=== PATIENT | male | born 1995 | race Caucasian/White ===

== ENCOUNTER → 2020-01-18 11:00 | Outpatient (BNVA) | payer BC, SELFPAY | PROVIDERS: Family Provider Family Medicine; PCP Family Medicine; Visit Provider Internal Medicine | DX: K90.9 Intestinal malabsorption, unspecified (principal); K29.70 Gastritis, unspecified, without bleeding; K29.00 Acute gastritis without bleeding | CPT/HCPCS: 83540; 83550; 85025 ==

== ENCOUNTER 2020-01-29 11:11 | Outpatient (CLI) | payer BC, SELFPAY | END 2020-01-29 11:12 | disposition home or self-care (01) | LOC: GILAB 11:12 | PROVIDERS: Family Provider Family Medicine; PCP Family Medicine; Visit Provider Internal Medicine | DX: Z01.89 Encounter for other specified special examinations (principal) ==

== ENCOUNTER 2020-02-05 08:55 | Outpatient (RCR) | payer BC, SELFPAY ==
[2020-01-29 10:35] VITALS: BMI 31.3
[2020-02-05 09:05] VITALS: BP 124/78; PULSE 88; RESP 18; TEMP 36.4; O2SAT 98
== END 2020-02-13 23:59 | disposition home or self-care (01) ==
LOC: GILAB 08:55
PROVIDERS: Family Provider Family Medicine; PCP Family Medicine; Visit Provider Internal Medicine
DX: K90.9 Intestinal malabsorption, unspecified (principal)
CPT/HCPCS: 96365; J1439

== ENCOUNTER 2020-03-03 10:18 | Emergency (ER) | payer BC, SELFPAY ==
[2020-03-03 10:23] VITALS: BMI 31.0
[2020-03-03 10:26] VITALS: BP 131/76; PULSE 107; RESP 18; TEMP 37.2; O2SAT 98
--- NOTE | 2020-03-03 10:30 | W.ED.EXTPRO ---
HPI - Extremity Problem General: Chief complaint: Extremity Problem,Nontraumatic Stated complaint: LEFT LEG CRAMP Time Seen by Provider: 03/03/20 10:24 PFSH ED PFSH: Social History Smoking and tobacco status: never smoked Alcohol intake: never Household members: family Housing: House History of recent travel: No Current gender identity: Male Course Vital Signs: Vital signs: Vital Signs Temperature 98.9 F 03/03/20 10:26 Pulse Rate 89 03/03/20 12:15 Respiratory Rate 16 03/03/20 12:15 Blood Pressure 133/66 03/03/20 12:15 Pulse Oximetry 99 03/03/20 12:15 MDM - Extremity (Nontraumatic) Lab Data: Labs: Lab Results 03/03/20 03/03/20 Range/Units 10:53 11:20 WBC 11.8 H (4.0-10.0) 10^3/ uL RBC 6.01 H (4.1-5.3) 10^6/u L Hgb 14.6 (11.7-16.6) g/dL Hct 48.7 (42.0-52.0) % MCV 81.0 (80-94) fL MCH 24.3 L (28.0-34.0) pg MCHC 30.0 (30.0-36.0) g/dL RDW 14.0 (12.1-15.1) % Plt Count 250 (130-400) 10^3/c mm MPV 11.0 H (7.4-10.4) fL Neut % (Auto) 82.0 % Lymph % (Auto) 7.0 % Ramsey % (Auto) 10.0 % Eos % (Auto) 0.3 % Baso % (Auto) 0.3 % Neut # (Auto) 9.6 H (1.8-7.7) 10^3/u L Lymph # (Auto) 0.8 (0.8-4.8) 10^3/u L Ramsey # (Auto) 1.2 H (0.2-0.9) 10^3/u L Eos # (Auto) 0.0 (0.0-0.8) 10^3/u L Baso # (Auto) 0.0 (0.0-0.1) 10^3/u L Nucleated RBC % (a uto) 0 % Nucleated RBCs # 0.0 /100WBC Poikilocytosis 1+ H Anisocytosis 1+ H Ovalocytes 1+ H Iron 22 L (59-158) ug/dL TIBC 313 mcg/dl % Saturation 7.0 L (20-50) % Unsat Iron Binding 291 (112-347) ug/dL Ferritin 54 (30-400) ng/mL Discharge Plan Discharge Patient Disposition: Home, Self-Care Clinical Impression: Malabsorption of iron, Muscle cramp Anemia Qualifiers: Anemia type: iron deficiency Iron deficiency anemia type: other iron deficiency Qualified Code(s): D50.8 - Other iron deficiency anemias Condition: Stable Prescriptions: New cyclobenzaprine 5 mg tablet 5 mg PO Q8H PRN (Reason: muscle spasm) Qty: 14 RF: 0 No Action mesalamine [Lialda] 1.2 gram tablet,delayed release (DR/EC) 2.4 gm PO DAILY RF: 0 ondansetron HCl [Zofran] 4 mg tablet 4 mg PO Q6H PRN (Reason: nausea and vomiting) Qty: 14 RF: 0 magnesium 250 mg Tablet 250 mg PO DAILY PRN (Reason: MUSCLE CRAMPS) RF: 0 Excedrin Extra Strength 250-250-65 mg Tablet 1 tab PO Q6H PRN (Reason: Pain) RF: 0 Slow Fe 142 mg (45 mg iron) Tablet Extended Release 142 mg PO DAILY RF: 0 Discharge Orders: Discharge Order (Routine); Ordered 03/03/20 Ordered By: Conor Connell Referrals: Mert Vogel MD [Primary Care Provider] - Jenni Barajas DO [Family Provider] - Discharge Diet: Usual diet Discharge Activity: Increase activity as tolerated Patient Instructions: Leg Cramps (ED), Muscle Cramp (ED) Activity Restrictions/Additional Instructions: Follow-up with medical provider as directed. Take medications as prescribed. Return to the ER or your medical provider if condition worsens. Please read and understand discharge instructions. If any questions ask please. Discharge Date/Time: 03/03/20 12:04 Coding Level of Care Code ED Automation Technologist for [facility]
[2020-03-03] MEDS: cyclobenzaprine 10 mg Tablet PO (10:37)
[2020-03-03 11:17] LABS: Ferritin 54 ng/mL (30-400); Iron 22 ug/dL (59-158); Total Iron Binding Capacity 313 mcg/dl; Unsaturated Iron Binding 291 ug/dL (112-347)
[2020-03-03 11:29] LABS: Basophils % 0.3 %; Eosinophils % 0.3 %; Hematocrit 48.7 % (42.0-52.0); Hemoglobin 14.6 g/dL (11.7-16.6); Lymphocytes # 0.8 10^3/uL (0.8-4.8); Mean Corpuscular Hemoglobin 24.3 pg (28.0-34.0); Monocytes # 1.2 10^3/uL (0.2-0.9); Neutrophils # 9.6 10^3/uL (1.8-7.7); Nucleated Red Blood Cells % 0 %; Platelet Count 250 10^3/cmm (130-400); Red Blood Count 6.01 10^6/uL (4.1-5.3); White Blood Count 11.8 10^3/uL (4.0-10.0)
[2020-03-03 11:56] LABS: Add RBC Morph Yes; Slide Review Slide Review Perform
[2020-03-03 11:57] LABS: Anisocytosis 1+; Ovalocytes 1+; Poikilocytosis 1+
[2020-03-03 11:58] LABS: RBC Morph Comp Yes
[2020-03-03 12:15] VITALS: BP 133/66; PULSE 89; RESP 16; O2SAT 99
== END 2020-03-03 12:04 | disposition home or self-care (01) ==
PROVIDERS: Emergency Provider Nurse Practitioner Family; Family Provider Family Medicine; PCP Internal Medicine
DX: D50.8 Other iron deficiency anemias (principal); K90.9 Intestinal malabsorption, unspecified; R25.2 Cramp and spasm
CPT/HCPCS: 12345; 36415; 82728; 83540; 83550; 85025; 99281; 99283

== ENCOUNTER → 2020-05-01 11:34 | Outpatient (BNVA) | payer BC, SELFPAY | PROVIDERS: Family Provider Family Medicine; PCP Internal Medicine; Visit Provider Family Medicine | DX: M25.551 Pain in right hip (principal); K51.311 Ulcerative (chronic) rectosigmoiditis with rectal bleeding | CPT/HCPCS: 73502 ==

== ENCOUNTER → 2020-06-13 14:46 | Outpatient (BNVA) | payer BC, SELFPAY | PROVIDERS: Family Provider Family Medicine; PCP Internal Medicine; Visit Provider Internal Medicine | DX: K90.9 Intestinal malabsorption, unspecified (principal) | CPT/HCPCS: 83550; 85025 ==

== ENCOUNTER → 2020-07-29 12:00 | Outpatient (BNVA) | payer BC, SELFPAY | PROVIDERS: Family Provider Family Medicine; PCP Internal Medicine; Visit Provider Nurse Practitioner Family | DX: Z11.59 Encounter for screening for other viral diseases | CPT/HCPCS: 87635 ==

== ENCOUNTER → 2022-08-27 11:24 | Outpatient (BNVA) | payer BC, OTHER, SELFPAY | PROVIDERS: Family Provider Family Medicine; Visit Provider Emergency Medicine | DX: K51.311 Ulcerative (chronic) rectosigmoiditis with rectal bleeding (principal); D50.8 Other iron deficiency anemias; R11.2 Nausea with vomiting, unspecified | CPT/HCPCS: 85025 ==

== ENCOUNTER → 2024-05-22 09:02 | Outpatient (BNVA) | payer OTHER, SELFPAY | PROVIDERS: Family Provider Family Medicine; PCP Nurse Practitioner; Referring Provider Nurse Practitioner; Visit Provider Nurse Practitioner | DX: R42 Dizziness and giddiness (principal) | CPT/HCPCS: 80053; 84443; 85025 ==